=== PATIENT | male | born 1980 | race Caucasian/White ===

== ENCOUNTER 2020-11-25 20:36 | Emergency (ER) | payer OTHER, MEDICAID ==
[~2020-11-25] VITALS: Ht 188 cm; Wt 97.5 kg
[~2020-11-25 20:36] MED LIST: AFRIN15 ML NS; CIPRO HC OTIC S10 ML OTIC; CLEOCIN HCL150 MG PO; DOXYCYCLINE 10100 MG PO; HYDROCODONE-AP1 EAC6 PO; KEFLEX500 MG PO; MEDROLDOSEPACK PO; ONDANSETRON HCL4 M2 PO; PROAIR HFA8.5 GM INH; PROMETHAZINE D480 ML PO; PROMETHEGAN25 MG RC; SUPHEDRINE SINU30 MG PO; ZOFRAN4 MG PO
[2020-11-25 21:33] VITALS: BP 137/72
== END 2020-11-25 21:34 | disposition home or self-care (01) ==
LOC: M.ERS 20:36
DX: S06.0X0A Concussion without loss of consciousness, initial encounter (principal); W22.8XXA Striking against or struck by other objects, initial encounter; Y93.89 Activity, other specified; Y92.89 Other specified places as the place of occurrence of the external cause; Y99.8 Other external cause status; J45.909 Unspecified asthma, uncomplicated; F17.210 Nicotine dependence, cigarettes, uncomplicated; Z88.0 Allergy status to penicillin; Z88.2 Allergy status to sulfonamides

== ENCOUNTER 2020-11-29 19:37 | Emergency (ER) | payer OTHER, MEDICAID ==
[~2020-11-29] VITALS: Ht 188 cm; Wt 102.1 kg
[2020-11-29 20:40] LABS: ABSOLUTE EOSINOPHILS 0.3 thou/uL (0.0-0.7); ABSOLUTE LYMPHOCYTES 2.4 thou/uL (0.8-5.3); ABSOLUTE MONOCYTES 0.7 thou/uL (0.0-1.2); ABSOLUTE NEUTROPHILS 6.1 thou/uL (1.6-8.1); BASOPHILS 0.3 %; EOSINOPHILS 3.5 %; HEMOGLOBIN 15.2 gm/dL (14.0-18.0); LYMPHOCYTES 25.3 %; MCH 28.4 pg (26.0-34.0); MCHC 33.8 g/dL (28.0-37.0); MONOCYTES 7.4 %; MPV 6.8 fl. (7.2-11.1); NUCLEATED RBCS 0 /100WBC; PLATELET COUNT* 206 thou/uL (150-400); POLYS 63.5 %; RBC 5.36 mil/uL (4.50-6.00); RDW-CV 14.4 % (10.5-14.5); WBC 9.6 thou/uL (4.0-11.0)
[2020-11-29 20:48] LABS: CALCIUM 9.3 mg/dL (8.5-10.1); POTASSIUM 4.1 mmol/L (3.5-5.1)
[2020-11-29 20:53] LABS: ALBUMIN 3.4 g/dL (3.4-5.0); TOTAL BILIRUBIN 0.1 mg/dL (<0.1-1.0); TOTAL PROTEIN 6.8 g/dL (6.4-8.2)
[2020-11-29] MEDS ORDERED: PREDNISONE50 MG PO (21:35)
[2020-11-29 21:45] VITALS: BP 135/78
--- NOTE | 2020-11-30 13:44 | EKG ---
[place] [address] ELECTROCARDIOGRAM REPORT Name: BERENICE LOVE Room: [facility]#: [id number] Admission: 11/29/20 Attend Phys: Discharge: 11/29/20 Date of : 76 Date of Service: 11/29/201942 Report #: [id number] THIS REPORT FOR: //name// [facility] ED Test Date: 2020-11-29 Test Time: 19:43:57 Pat Name: BERENICE LOVE Department: Room: Gender: Library Customer Service Clerk: [place] : 1980 Requested By: Alexia Davis Order Number: [id number] Malik MD: Devan Bear Measurements Intervals [place] Rate: 72 P: 59 AR: 142 QRS: 1 QRSD: 116 T: 30 QT: 370 QTc: 405 Interpretive Statements Sinus rhythm Nonspecific intraventricular conduction delay Compared to ECG 09/05/2016 23:42:35 no change Electronically Signed On 11-30-2020 13:43:56 ESTHETICIAN/SKIN THERAPIST by Devan Bear [email or web address] <ELECTRONICALLY SIGNED> By: Devan Bear MD, [facility] 11/30/20 1343 42 42 Devan Bear MD, [facility] /EPI
== END 2020-11-29 21:45 | disposition home or self-care (01) ==
LOC: M.ERS 19:37
PROVIDERS: Emergency Medicine
DX: F07.81 Postconcussional syndrome (principal); H70.92 Unspecified mastoiditis, left ear; R00.2 Palpitations; J45.909 Unspecified asthma, uncomplicated; F17.210 Nicotine dependence, cigarettes, uncomplicated; Z88.0 Allergy status to penicillin; Z88.2 Allergy status to sulfonamides

== ENCOUNTER 2020-12-17 19:39 | Emergency (ER) | payer OTHER, MEDICAID ==
[~2020-12-17] VITALS: Ht 188 cm; Wt 102.1 kg
[~2020-12-17 19:39] MED LIST changes: +PREDNISONE50 MG PO
[2020-12-17] MEDS ORDERED: HYDROCODON-ACE1 EAC7 PO (21:33)
[2020-12-17] MEDS ORDERED: KEFLEX500 M1 PO (21:33)
[2020-12-17] MEDS ORDERED: IBUPROFEN 600600 M1 PO (21:33)
[2020-12-17 21:48] VITALS: BP 165/81
== END 2020-12-17 21:48 | disposition home or self-care (01) ==
LOC: M.ERS 19:39
DX: S62.604A Fracture of unspecified phalanx of right ring finger, initial encounter for closed fracture (principal); S62.602A Fracture of unspecified phalanx of right middle finger, initial encounter for closed fracture; J45.909 Unspecified asthma, uncomplicated; F17.210 Nicotine dependence, cigarettes, uncomplicated; Z88.0 Allergy status to penicillin; Z88.2 Allergy status to sulfonamides; X50.9XXA Other and unspecified overexertion or strenuous movements or postures, initial encounter; Y93.89 Activity, other specified; Y92.89 Other specified places as the place of occurrence of the external cause; Y99.8 Other external cause status

== ENCOUNTER 2021-06-17 18:06 | Emergency (ER) | payer OTHER, MEDICAID ==
[~2021-06-17] VITALS: Ht 188 cm; Wt 102.1 kg
[~2021-06-17 18:06] MED LIST changes: +HYDROCODON-ACE1 EAC7 PO; +IBUPROFEN 600600 M1 PO; +KEFLEX500 M1 PO
[2021-06-17] MEDS ORDERED: CIPROFLOXACIN500 M1 PO (18:25)
[2021-06-17] MEDS ORDERED: CORTISPORIN OTI10 M2 OTIC (18:25)
[2021-06-17 18:37] VITALS: BP 118/79
[2021-06-17] MEDS ORDERED: CIPROFLOX-DEXA7.5 ML OTIC (18:38)
== END 2021-06-17 18:37 | disposition home or self-care (01) ==
LOC: M.ERS 18:06
DX: H66.92 Otitis media, unspecified, left ear (principal); J45.909 Unspecified asthma, uncomplicated; F17.210 Nicotine dependence, cigarettes, uncomplicated; Z88.0 Allergy status to penicillin; Z88.2 Allergy status to sulfonamides

== ENCOUNTER 2021-12-21 19:42 | Emergency (ER) | payer OTHER, MEDICAID ==
[~2021-12-21] VITALS: Ht 188 cm; Wt 102.1 kg
[~2021-12-21 19:42] MED LIST changes: +CIPROFLOX-DEXA7.5 ML OTIC; +CIPROFLOXACIN500 M1 PO; +CORTISPORIN OTI10 M2 OTIC
[2021-12-21] MEDS ORDERED: K-TAB ER20 MEQ PO (20:01)
[2021-12-21 20:22] LABS: URINE BILIRUBIN NEGATIVE (Negative); URINE BLOOD 1+ (Negative); URINE CLARITY CLEAR; URINE COLOR YELLOW; URINE GLUCOSE-RANDOM NEGATIVE (Negative); URINE KETONES NEGATIVE (Negative); URINE LEUKOCYTES-REFLEX NEGATIVE (Negative); URINE NITRITE-REFLEX NEGATIVE (Negative); URINE PROTEIN NEGATIVE (Negative); URINE SPECIFIC GRAVITY >= 1.030 (1.005-1.030); URINE UROBILINOGEN 0.2 E.U./dl (0.2-1.0)
[2021-12-21 20:38] LABS: ABSOLUTE EOSINOPHILS 0.1 thou/uL (0.0-0.7); ABSOLUTE LYMPHOCYTES 1.5 thou/uL (0.8-5.3); ABSOLUTE MONOCYTES 0.8 thou/uL (0.0-1.2); ABSOLUTE NEUTROPHILS 4.6 thou/uL (1.6-8.1); BASOPHILS 0.7 %; EOSINOPHILS 0.9 %; HEMATOCRIT 44.3 % (42.0-52.0); LYMPHOCYTES 21.7 %; MCH 28.3 pg (26.0-34.0); MCHC 33.9 g/dL (28.0-37.0); MCV 83.4 fL (80.0-100.0); MONOCYTES 11.8 %; NUCLEATED RBCS 0 /100WBC; PLATELET COUNT* 187 thou/uL (150-400); POLYS 64.9 %; RBC 5.31 mil/uL (4.50-6.00); WBC 7.1 thou/uL (4.0-11.0)
[2021-12-21 20:43] LABS: CALCIUM 8.3 mg/dL (8.5-10.1); CREATININE 1.1 mg/dL (0.6-1.3)
[2021-12-21 20:48] LABS: ALBUMIN 3.5 g/dL (3.4-5.0); TOTAL BILIRUBIN 0.5 mg/dL (<0.1-1.0); TOTAL PROTEIN 7.2 g/dL (6.4-8.2)
[2021-12-21 21:03] LABS: CASTS None Seen /LPF (None Seen); SQUAMOUS NONE SEEN /LPF (0-3)
[2021-12-21 21:04] LABS: AMORPHOUS URATES Many /LPF (None Seen); BACTERIA-REFLEX 1-9 Few /HPF (None Seen); URINE RBC None Seen /HPF (0-2); URINE WBC-REFLEX 0-5 Rare /HPF (0-5)
[2021-12-21 21:06] LABS: URIC ACID CRYSTALS 4-10 Moderate /LPF (None Seen)
[2021-12-21] MEDS ORDERED: APAP W/CODEINE1 TA2 PO (21:45)
[2021-12-21] MEDS ORDERED: ONDANSETRON ODT4 MG PO (21:46)
[2021-12-21 22:00] VITALS: BP 130/70
== END 2021-12-21 22:00 | disposition home or self-care (01) ==
LOC: M.ERS 19:42
PROVIDERS: Physician Assistant
DX: R10.32 Left lower quadrant pain (principal); J45.909 Unspecified asthma, uncomplicated; F17.210 Nicotine dependence, cigarettes, uncomplicated; Z79.899 Other long term (current) drug therapy; Z88.0 Allergy status to penicillin; Z88.2 Allergy status to sulfonamides; Z88.8 Allergy status to other drugs, medicaments and biological substances